=== PATIENT | female | born 1995 | race Caucasian/White ===

== ENCOUNTER 2022-03-21 23:47 | Inpatient (IN) ==
[~2022-03-21 23:47] MED LIST: LACTATED RINGERS 1,000 ML IV SCH
[2022-03-21] MEDS ORDERED: BUTORPHANOL 2 MG/ML VIAL IV PRN (23:56)
[2022-03-21] MEDS ORDERED: miSOPROStoL 200 MCG TABLET RECTAL PRN (23:56)
[2022-03-21] MEDS ORDERED: MEPERIDINE 50 MG/1 ML VIAL IM PRN (23:56)
[2022-03-21] MEDS ORDERED: TRANEXAMIC ACID 1,000 MG in SODIUM CHLORIDE 0.9% 100 ML IV PRN (23:56)
[2022-03-21] MEDS ORDERED: METHYLERGONOVINE 0.2 MG/1 ML AMP IM PRN (23:56)
[2022-03-21] MEDS ORDERED: ONDANSETRON 4 MG/2 ML VIAL IV PRN (23:56)
[2022-03-21] MEDS ORDERED: CARBOPROST TROMETHAMINE 250 MCG/ML AMP IM PRN (23:56)
[2022-03-22 01:04] LABS: Basophils % 0.1 % (0.0-0.8); Eosinophils # 0.3 10*3/uL (0.0-0.87); Eosinophils % 2.9 % (0.00-10.9); Hematocrit 40.4 VOL% (35.7-47.0); Hemoglobin 13.2 GM/DL (12.0-16.0); Immature Granulocytes % 0.4 %; Immature Granulocytes Absolute 0.04 #; Lymphocytes # 1.9 10*3/uL (1.4-4.0); Lymphocytes % 18.3 % (21.3-54.2); Mean Corpuscular HGB Conc 32.7 GM/DL (32-36); Mean Corpuscular Volume 86.9 FL (87-102); Mean Platelet Volume 12.3 FL (9.6-12.0); Monocytes # 0.8 10*3/uL (0.11-0.8); Monocytes % 7.4 % (1.7-12.7); Neutrophils % 70.9 % (38.7-73.9); Platelet Count 189 T/CUMM (130-400); Red Blood Count 4.65 MC/CUMM (3.8-5.5); Red Cell Distribution Width 14.6 % (9.3-17.3); White Blood Count 10.1 T/CUMM (4-12)
[2022-03-22 01:15] LABS: Alanine Aminotransferase 20 U/L (13-56); Albumin 2.5 G/DL (3.4-5.0); Alkaline Phosphatase 102 U/L (45-117); Aspartate Amino Transferase 16 U/L (0-37); Bilirubin,Total < 0.39 MG/DL (0.20-1.00); Blood Urea Nitrogen 8 MG/DL (7-18); Calcium 9.2 MG/DL (8.5-10.1); Carbon Dioxide 19 MMOL/L (21-32); Chloride 110 MMOL/L (98-107); Glucose 115 MG/DL (74-106); Osmolality,Calculated 273.7 MOS/KG (273-304); Potassium 3.4 MMOL/L (3.5-5.1); Sodium 138 MMOL/L (136-145); Total Protein 6.5 G/DL (6.4-8.2)
[2022-03-22] MEDS ORDERED: MEPERIDINE 50 MG/1 ML VIAL IV PRN (03:18)
[2022-03-22] MEDS: OXYTOCIN/LR 20 UNIT/1,000 ML BAG IV ONE ×2 (06:50→15:43)
[2022-03-22] MEDS ORDERED: OXYTOCIN/LR 20 UNIT/1,000 ML BAG IV SCH (07:00)
[2022-03-22] MEDS ORDERED: diphenhydrAMINE 50 MG/1 ML VIAL IV PRN ×2 (07:01)
[2022-03-22] MEDS ORDERED: PROMETHAZINE 25 MG/1 ML VIAL IM ONE (07:01)
[2022-03-22] MEDS ORDERED: ePHEDrine 50 MG/ML VIAL IV PRN (07:01)
[2022-03-22] MEDS ORDERED: LACTATED RINGERS 250 ML IV PRN (07:01)
[2022-03-22] MEDS ORDERED: NALOXONE 0.4 MG/ML VIAL IV PRN (07:01)
[2022-03-22] MEDS ORDERED: hydrOXYzine HCL 25 MG/1 ML VIAL IM PRN (07:01)
[2022-03-22] MEDS ORDERED: LACTATED RINGERS 1,000 ML IV ONE (07:13)
[2022-03-22] MEDS ORDERED: FAMOTIDINE 20 MG/2 ML VIAL IV ONE (07:13)
[2022-03-22] MEDS ORDERED: CITRIC ACID/SODIUM CITRATE 30 ML UDCUP PO ONE (07:13)
[2022-03-22] MEDS ORDERED: fentaNYL 2 MCG/ROPIV 0.2% EPID 100 ML EPIDURAL SCH (07:30)
[2022-03-22] MEDS ORDERED: LACTATED RINGERS 1,000 ML IV SCH ×2 (07:30)
[2022-03-22 09:41] LABS: Mucus,Urine Occasional /LPF (Occasional); RBC,Urine 6 /HPF (0-4); Squamous Epithelial Cell,Urine Occasional /HPF (0-10); Urine Appearance Clear (Clear); Urine Color Yellow (Yellow)
[2022-03-22 09:42] LABS: Bilirubin,Urine Negative (Negative); Blood, Urine Trace mg/dL (Negative); Glucose,Urine (UA) Negative (Negative); Ketones,Urine Negative (Negative); Nitrite,Urine Negative (Negative); Protein,Urine Negative (Negative); Urine Specific Gravity 1.025 (1.001-1.035); Urine Urobilinogen 0.2 eU/dL (<2.0); Urine pH 6.5 (4.5-8.0)
[2022-03-22] MEDS ORDERED: TRANEXAMIC ACID 1,000 MG/10 ML VIAL ONE (12:46)
[2022-03-22] MEDS ORDERED: miSOPROStoL 200 MCG TABLET ONE (12:46)
[2022-03-22] MEDS ORDERED: METHYLERGONOVINE 0.2 MG/1 ML AMP ONE (12:47)
[2022-03-22] MEDS ORDERED: SODIUM CHLORIDE 0.9% 0 ML IV ONE (12:47)
[2022-03-22] MEDS ORDERED: CARBOPROST TROMETHAMINE 250 MCG/ML AMP IM ONE (12:47)
[2022-03-22 13:28] LABS: Cord Arterial Blood HCO3 18.7 MMOL/L
[2022-03-22 13:31] LABS: Cord Venous Blood HCO3 20.2 MMOL/L; Cord Venous Blood PCO2 46.9 MMHG; Cord Venous Blood PO2 21.8
[2022-03-22] MEDS ORDERED: DIPH/TET/ACEL PERT BOOSTER VACCINE 0.5 ML VIAL IM ONE (18:01)
[2022-03-22] MEDS ORDERED: ACETAMINOPHEN 325 MG TABLET PO PRN (18:01)
[2022-03-22] MEDS ORDERED: LANOLIN 50% CREAM 0.3 OZ TUBE TOP PRN (18:01)
[2022-03-22] MEDS ORDERED: MEASLES/MUMPS/RUBELLA VACCINE 0.5 ML VIAL SUBCUT ONE (18:01)
[2022-03-22] MEDS ORDERED: BISACODYL 10 MG SUPP RECTAL PRN (18:01)
[2022-03-22] MEDS ORDERED: BENZOCAINE 20%/MENTHOL 0.5% SPRAY 56 GM CAN TOP PRN (18:01)
[2022-03-22] MEDS ORDERED: WITCH HAZEL PADS 100/JAR TOP PRN (18:01)
[2022-03-22] MEDS ORDERED: RHO(D) IMMUNE GLOBULIN 300 MCG SYRINGE IM ONE (18:01)
[2022-03-22] MEDS ORDERED: HYDROCORTISONE 2.5% RECTAL CREAM 30 GM TUBE TOP PRN (18:01)
[2022-03-22] MEDS ORDERED: OXYTOCIN/LR 20 UNIT/1,000 ML BAG IV ONE (18:01)
[2022-03-22] MEDS ORDERED: oxyCODONE/ACETAMINOPHEN 5-325 MG TABLET PO PRN ×2 (18:01)
[2022-03-22] MEDS: IBUPROFEN 800 MG TABLET PO PRN (19:51)
[2022-03-22] MEDS: DOCUSATE SODIUM 100 MG CAPSULE PO SCH (20:44)
[2022-03-22] MEDS ORDERED: POTASSIUM CHLORIDE 20 MEQ TABLET PO PRN (21:15)
[2022-03-23] MEDS: IBUPROFEN 800 MG TABLET PO PRN ×3 (03:51→17:54)
[2022-03-23 05:01] LABS: Basophils % 0.1 % (0.0-0.8); Eosinophils # 0.1 10*3/uL (0.0-0.87); Eosinophils % 1.1 % (0.00-10.9); Hematocrit 25.9 VOL% (35.7-47.0); Hemoglobin 8.3 GM/DL (12.0-16.0); Immature Granulocytes % 0.5 %; Immature Granulocytes Absolute 0.06 #; Lymphocytes # 1.4 10*3/uL (1.4-4.0); Lymphocytes % 11.7 % (21.3-54.2); Mean Corpuscular Volume 90.2 FL (87-102); Mean Platelet Volume 12.4 FL (9.6-12.0); Monocytes # 0.9 10*3/uL (0.11-0.8); Monocytes % 7.2 % (1.7-12.7); Neutrophils % 79.4 % (38.7-73.9); Platelet Count 128 T/CUMM (130-400); Red Blood Count 2.87 MC/CUMM (3.8-5.5); Red Cell Distribution Width 14.7 % (9.3-17.3); White Blood Count 12.2 T/CUMM (4-12)
[2022-03-23] MEDS: DOCUSATE SODIUM 100 MG CAPSULE PO SCH ×2 (09:05→21:07)
[2022-03-23] MEDS: FERROUS SULFATE 325 MG TABLET PO SCH (21:08)
[2022-03-24] MEDS: IBUPROFEN 800 MG TABLET PO PRN ×2 (00:34→09:25)
[2022-03-24] MEDS: FERROUS SULFATE 325 MG TABLET PO SCH (09:12)
[2022-03-24] MEDS: DOCUSATE SODIUM 100 MG CAPSULE PO SCH (09:12)
[2022-03-24] MEDS ORDERED: DIPH/TET/ACEL PERT BOOSTER VACCINE 0.5 ML VIAL IM ONE (12:16)
[2022-03-24 13:02] VITALS: BP 107/62
== END 2022-03-24 12:40 | disposition home or self-care (01) | DRG 807 ==
LOC: N.LDOUT 23:47 → N.LD 23:52 → N.OB 03-22 17:15
PROVIDERS: ADMIT Obstetrics & Gynecology; ATTEND Obstetrics & Gynecology